=== PATIENT | female | born 1995 | race Caucasian/White ===

== ENCOUNTER 2019-11-22 15:24 | Emergency (ER) | payer OTHER ==
[~2019-11-22] VITALS: Ht 157.5 cm; Wt 63.5 kg
--- NOTE | 2019-11-22 15:24 | NUR ---
[facility] TO ER BED 05
[2019-11-22 15:25] VITALS: BP 124/80
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
--- NOTE | 2019-11-22 15:25 | NUR ---
SITTER AT BEDSIDE, SIDE RAIL X2 PT CALM/QUIET.
--- NOTE | 2019-11-22 15:38 | NUR ---
called security for pt belongings
--- NOTE | 2019-11-22 15:52 | NUR ---
LAB AT BEDSIDE
--- NOTE | 2019-11-22 15:57 | NUR ---
Dr. Almodovar is evaluating the patient at bedside.
[2019-11-22 16:02] LABS: BASOPHILS # (AUTO) 0.1 K/uL (0.00-0.22); BASOPHILS % (AUTO) 0.5 % (0.0-2.0); EOSINOPHILS # (AUTO) 0.1 K/uL (0-0.4); EOSINOPHILS % (AUTO) 0.8 % (0.0-4.0); HEMATOCRIT 41.4 % (36-48); HEMOGLOBIN 13.6 g/dL (12.0-16.0); LYMPHOCYTES % (AUTO) 16.6 % (20.5-51.1); MEAN CORPUSCULAR HEMOGLOBIN 28 pg (27-31); MEAN CORPUSCULAR HGB CONC 33 g/dL (33-37); MEAN CORPUSCULAR VOLUME 85.8 fL (80-94); MONOCYTES # (AUTO) 0.4 K/uL (0.8-1.0); MONOCYTES % (AUTO) 3.6 % (1.7-9.3); NEUTROPHILS # (AUTO) 9.3 K/uL (1.8-7.7); NEUTROPHILS % (AUTO) 78.5 % (42.2-75.2); PLATELET COUNT (AUTO) 199 K/uL (140-450); RED BLOOD CELL COUNT(AUTO) 4.82 MIL/uL (4.20-5.40); RED CELL DISTRIBUTION WIDTH 13.3 % (11.6-13.7); WHITE BLOOD COUNT (AUTO) 11.8 K/uL (4.8-10.8)
[2019-11-22 16:05] LABS: APPEARANCE,URINE SL CLOUDY (CLEAR); BILIRUBIN,URINE NEGATIVE (NEGATIVE); BLOOD, URINE NEGATIVE (NEGATIVE); COLOR,URINE YELLOW (YELLOW); LEUKOCYTE ESTERASE ,URINE NEGATIVE (NEGATIVE); NITRITE, URINE NEGATIVE (NEGATIVE); PH,URINE 6.5 (5.0-9.0); UGLUCOSE NEGATIVE (NEGATIVE)
--- NOTE | 2019-11-22 16:06 | NUR ---
MOTHER: ORION HALL PHONE: [phone]
--- NOTE | 2019-11-22 16:11 | NUR ---
FATHER: MARIA EUGENIA GO PHONE: [phone]
--- NOTE | 2019-11-22 16:11 | NUR ---
SPOKE TO MOTHER ORION OVER THE PHONE. PER MOTHER PT HAS NEVER HAD A SUICIDIAL EPISODE THAT SHE KNOWS OF. PER MOTHER PT HAS ALLERGIES AMOXICILLIN, NO HX, NO RX.
[2019-11-22 16:22] LABS: BARBITURATE, URINE NEGATIVE ng/ml (NEG <=200); BENZODIAZEPINE, URINE NEGATIVE ng/mL (NEG <=200); CANNABINOID, URINE POSITIVE ng/mL (NEG <=50); COCAINE, URINE NEGATIVE ng/mL (NEG <=300); PHENCYCLIDINE SCREEN,URINE NEGATIVE ng/mL (NEG <=25)
--- NOTE | 2019-11-22 16:23 | NUR ---
SITTER AT BEDSIDE, SIDE RAIL X2. PT CALM/QUIET.
[2019-11-22 16:24] LABS: OPIATE, URINE NEGATIVE ng/mL (NEG <=2000)
--- NOTE | 2019-11-22 16:30 | NUR ---
PT RESTING IN BED, SIDE RAIL X2. SITTER AT BEDSIDE, PT CALM/QUIET.
[2019-11-22 17:07] LABS: ALBUMIN 3.8 g/dL (3.4-5.0); ANION GAP 13.9 (8-16); ASPARTATE AMINOTRANSFERASE 20 U/L (15-37); CARBON DIOXIDE 25.7 mmol/L (21-32); CHLORIDE 106 mmol/L (98-107); GFR ARICAN-AMERICAN 88 mL/min (>90); GLUCOSE 87 mg/dL (74-106); POTASSIUM 3.6 mmol/L (3.5-5.1); SALICYLATE 5.7 mg/dL (2.8-20.0); SODIUM SERUM 142 mmol/L (136-145); TOTAL BILIRUBIN 0.8 mg/dL (0.0-1.0); UREA NITROGEN, BLOOD 7 mg/dL (7-18)
--- NOTE | 2019-11-22 17:10 | NUR ---
POISON CONTROL CALLED PER POLICY. REILLY NOVOA ADVISED TO CALL IF ANY CHANGES ON PATIENT. PT CURRENTLY ASYMPTOMATIC, VSS, QUIET/CALM, COOPERATIVE. PER BRIGHT KEEP ALERT ON CHANGES OF HEART RATE, EKG, ALOC. RECOMMENDED CBC,CMP,SALICYLATES,EKG,CARDIAC MONITORING, SZ PRECAUTIONS. PHONE:
[2019-11-22 17:24] LABS: ACETAMINOPHEN < 0.5 ug/ml (10-30)
--- NOTE | 2019-11-22 18:08 | NUR ---
PT RESTING IN BED, SIDE RAIL X2. SITTER AT BEDSIDE, PT CALM/QUIET.
--- NOTE | 2019-11-22 18:38 | NUR ---
Jim Valenzuela s/haley Perez, catarino faxed for review
--- NOTE | 2019-11-22 18:41 | NUR ---
PT RESTING IN BED, SIDE RAIL X2. SITTER AT BEDSIDE, PT CALM/QUIET.
--- NOTE | 2019-11-22 19:10 | NUR ---
REPORT GIVEN TO GRACIELA BURNS FOR CONTINUITY OF CARE
--- NOTE | 2019-11-22 19:14 | NUR ---
RECIEVED REPORT FROM KATY WEINBERG. TRANSFER OF CARE AT THIS TIME.
--- NOTE | 2019-11-22 19:22 | NUR ---
PT RESTING CALM AND COMFORTABLY IN BED. PROVIDED WITH DINNER AND ENCOURAGED TO EAT BUT STATES SHE DOESNT FEEL LIKE EATING. SITTER AT BEDSIDE. WILL CONTINUE TO MONITOR.
--- NOTE | 2019-11-22 19:31 | NUR ---
TELEPSYCH EVAL INITIATED; CONNECT ID [id number]
--- NOTE | 2019-11-22 19:37 | NUR ---
[facility] s/w Maria C Gore, no beds for tonight. Call back at 9 AM after treatment team to see if they have any discharges [facility] s/w Isadora, "no beds, we are full"
--- NOTE | 2019-11-22 20:24 | NUR ---
SPOKE WITH MALKA FROM [facility], REPORT GIVEN. ALL QUESTIONS ANSWERED. ACCEPTING DR. VINCE CALLEJAS.
--- NOTE | 2019-11-22 20:42 | NUR ---
PER PT REQUEST CALLED HER FATHER MARIA EUGENIA TO INFORM HIM THAT SHE WILL TRANSFERED TO [facility]. [phone]
--- NOTE | 2019-11-22 20:58 | NUR ---
SPOKE WITH KENNY FROM [facility] [employer]. UPDATED WITH PATIENT INFO. NO NEW QUESTIONS OR CONCERNS AT THIS ITME. KENNY TO CLOSE CASE IF NO FURTHER INFORMATION PROIVDED BY [facility] STAFF.
--- NOTE | 2019-11-22 21:18 | NUR ---
PER PT REQUEST I SPOKE WITH HER BOYFRIEND KEVIN TO INFORM HIM THAT SHE WILL BE TRANSFERED TO [facility]. [phone]
[2019-11-22 21:19] VITALS: BP 119/78
--- NOTE | 2019-11-22 21:19 | NUR ---
Patient to be transferred to [facility]. Is being transferred due to 5150 HOLD. Receiving facility has accepting physician and available space. ER physician has signed transfer form. Patient or responsible republican has agreed to transfer and signed form. Patient belongings inventoried and will be sent with patient. Copy of nursing notes, lab reports, EKG, Physicians Orders and X-rays to be sent with patient. Report called to KATY ACE at receiving facility. [facility] ambulance service has been called for transfer. CALLED FOR TRANSFER AND IS AT BEDSIDE.
== END 2019-11-22 21:19 ==
LOC: MED 15:24
DX: R45.851 Suicidal ideations (principal); Z88.0 Allergy status to penicillin
CPT/HCPCS: 36415; 80053; 80305; 81003; 81025; 85025; 93005; 99285; G0480; G0482; 99284